=== PATIENT | male | born 1975 | race Two or more races ===

== ENCOUNTER 2018-10-08 15:20 | Emergency (ER) | payer BC ==
--- NOTE | 2018-10-08 16:54 | ED ---
Throat Pain/Nasal Congestion - HPI Summary HPI Summary: This patient is a 43 year old M presenting to [facility] with a chief complaint of pain in left ear since morning. Pt took a shower in the morning and then drove, and he reports 20 years ago he had an ear infection after he went swimming and drove. Per triage, the patient rates the pain 4/10 in severity. Patient denies fever, sore throat, coughing, changes in vision, ringing in ear, N/ V/D. Pt has not taken and medications for pain. Medications reviewed. Allergies noted - History of Current Complaint Chief Complaint: EDEarPain Time Seen by Provider: 10/08/18 16:44 Hx Obtained From: Patient Onset/Duration: Sudden Onset, Lasting Hours, Still Present Severity: Moderate Associated Signs And Symptoms: Positive: Negative Cough: None Related History: Other (Noted In Comments) - ear infection 20 years ago - Allergies/Home Medications Allergies/Adverse Reactions: Allergies Allergy/AdvReac Type Severity Reaction Status Date / Time No Known Allergies Allergy Verified 10/08/18 15:27 PMH/Surg Hx/FS Hx/Imm Hx Sensory History: Denies: Hx Legally Blind, Hx Vision Problem Opthamlomology History: Denies: Hx Legally Blind EENT History: Denies: Hx Deafness - Cancer History Cancer Type, Location and Year: Colon CA - Surgical History Surgery Procedure, Year, and Place: tonsillectomy Infectious Disease History: No Infectious Disease History: Denies: Traveled Outside the [place] in Last 30 Days - Family History Known Family History: Positive: Hypertension, Diabetes - Social History Alcohol Use: None Substance Use Type: Reports: None Hx Tobacco Use: No Smoking Status (MU): Never Smoked Tobacco Review of Systems Negative: Fever Negative: Blurred Vision Positive: Ear Ache. Negative: Sore Throat, Other - ringing in ear Negative: Vomiting, Diarrhea, Nausea All Other Systems Reviewed And Are Negative: Yes Physical Exam - Summary Physical Exam Summary: Constitutional: Well-developed, Well-nourished, Alert. (-) Distressed Skin: Warm, Dry HENT: Normocephalic; Atraumatic; no mastoid tenderness, erythematous TM; No pain with manipulation Eyes: Conjunctiva normal Neck: Musculoskeletal ROM normal neck. (-) JVD, (-) Stridor, (-) Tracheal deviation Cardio: Rhythm regular, rate normal, Heart sounds normal; Intact distal pulses; The pedal pulses are 2+ and symmetric. Radial pulses are 2+ and symmetric. (-) Murmur Pulmonary/Chest wall: Effort normal. (-) Respiratory distress, (-) Wheezes, (-) Rales Abd: Soft, (-) tenderness, (-) Distension, (-) Guarding, (-) Rebound Musculoskeletal: (-) Edema Lymph: (-) Cervical adenopathy Neuro: Alert, Oriented x3 Psych: Mood and affect Normal Triage Information Reviewed: Yes Vital Signs On Initial Exam: Initial Vitals Temp Pulse Resp BP Pulse Ox 98.0 F 70 18 151/92 97 10/08/18 15:26 10/08/18 15:26 10/08/18 15:26 10/08/18 15:26 10/08/18 15:26 Vital Signs Reviewed: Yes Diagnostics - Vital Signs Vital Signs Temp Pulse Resp BP Pulse Ox 10/08/18 15:26 98.0 F 70 18 151/92 97 - Laboratory Lab Statement: Any lab studies that have been ordered have been reviewed, and results considered in the medical decision making process. EENT Course/Dx - Course Course Of Treatment: Patient is here with otitis media on the left. Patient has no evidence of mastoiditis and is overall well-appearing. Patient was discharged on antibiotics. - Diagnoses Provider Diagnoses: Left otitis media Discharge ED - Sign-Out/Discharge Documenting (check all that apply): Patient Departure - Discharge Patient Received Moderate/Deep Sedation with Procedure: No - Discharge Plan Condition: Stable Disposition: HOME Prescriptions: Amoxicillin PO (*) [Amoxicillin 875 MG (*)] 875 mg PO BID 7 Days #14 tab Patient Education Materials: Ear Infection (ED) Referrals: [facility] [Outside] Additional Instructions: Take antibiotics as prescribed, return if fever develops, change in hearing, or any worsening symptoms. Please follow up with your primary care physician - Billing Disposition and Condition Condition: STABLE Disposition: Home - Attestation Statements Document Initiated by Scribe: Yes Documenting Scribe: Raven Traylor Provider For Whom Scribe is Documenting (Include Credential): Max Thomas MD Scribe Attestation: Raven Contreras, scribed for Max Thomas MD on 10/08/18 at 2058. Scribe Documentation Reviewed: Yes Provider Attestation: The documentation as recorded by the scribe, Raven Traylor accurately reflects the service I personally performed and the decisions made by me, Max Thomas MD Status of Scribe Document: Viewed
[2018-10-08 17:21] VITALS: BP 146/96
== END 2018-10-08 17:10 | disposition home or self-care (01) ==
LOC: ED 15:20
DX: H66.92 Otitis media, unspecified, left ear (principal)
CPT/HCPCS: 99282